=== PATIENT | male | born 1985 | race Caucasian/White ===

== ENCOUNTER 2021-11-17 10:42 | Emergency (ER) | payer BC, SELFPAY ==
[2021-11-17 11:01] VITALS: BP 118/72; PULSE 77; RESP 16; TEMP 36.7; O2SAT 99
--- NOTE | 2021-11-17 11:16 | ED.SKABFB ---
HPI - Skin/Abscess/Foreign Bdy General Chief complaint: Skin/Abscess/Foreign Body Stated complaint: rash Time Seen by Provider: 11/17/21 11:17 Source: patient Mode of arrival: ambulatory Limitations: no limitations History of Present Illness HPI narrative: Bakari Ochoa is a 36 yo male with no PMH who comes to express care with a rash of L axilla. Occasionally is tender but right now it is not bothering him; here because they have a baby at home and make sure he did not have something was contagious Related Data Home Medications Medication Instructions Recorded Confirmed No Home Medications 11/17/21 11/17/21 Allergies Allergy/AdvReac Type Severity Reaction Status Date / Time Sulfa (Sulfonamide Allergy Mild Verified 11/17/21 11:10 Antibiotics) sulfamethoxazole Allergy Mild Verified 11/17/21 11:10 trimethoprim Allergy Mild Verified 11/17/21 11:10 Review of Systems Review of Systems: CONSTITUTIONAL: Denies fever, chills, sweats. EYES: Denies visual changes, redness, discharge. ENT: Denies rhinorrhea, congestion, sore throat, otalgia. CARDIOVASCULAR: Denies chest pain, palpitations, edema. RESPIRATORY: Denies dyspnea, wheezing, cough GASTROINTESTINAL: Denies abdominal pain, nausea, vomiting, diarrhea. GENITOURINARY: Denies dysuria, hematuria, abnormal discharge SKIN: Denies rash or itching. Rash in left axilla NEUROLOGIC: Denies numbness, or focal weakness. PSYCHIATRIC: Denies anxiety or depression. PMFSH Past Medical History Medical History No acute medical problems Social History Social History (Updated 11/17/21 @ 11:26 by Carmen Vergara CNP) Smoking status: Never smoker Alcohol intake: current Comments At time of signature, I agree with nursing past medical, surgical, social and family history. There is no relevant family history pertinent to the presenting complaint. Exam Narrative: GENERAL: This is a well-nourished, well-developed patient, in mild distress. HEAD: normocephalic, atraumatic. EYES: Sclera clear/white. Vision is grossly intact. EARS: External ears normal, . Hearing grossly intact. NOSE: External nose normal without nasal discharge, nares without redness, no rhinorrhea. THROAT: Mucous membranes moist, NECK: Neck supple, CARDIOVASCULAR: Regular rate and rhythm without murmurs, gallops, or rubs. RESPIRATORY: Clear to auscultation. Breath sounds equal bilaterally. No wheezes, rales, or rhonchi. GASTROINTESTINAL: Abdomen soft, non-tender, SKIN: warm, intact with small clusters of erythematous scabbed lesions under left axilla, no tenderness, no induration, is not pruritic NEURO: awake, alert, and oriented to person, place and time. There were no obvious focal neurologic abnormalities. Steady gait EXTREMITIES: Normal range of motion. BACK: Nontender without deformity Course Course Emergency Course: Patient comes with a rash in the left axilla Does not appear to be an infected or infectious-recommended use of triamcinolone until clear Level of Care: Express Care Visit Vital Signs Vital signs: Vital Signs Temperature 98.1 F 11/17/21 11:01 Pulse Rate 77 11/17/21 11:01 Respiratory Rate 16 11/17/21 11:01 Blood Pressure 118/72 11/17/21 11:01 Pulse Oximetry 99 11/17/21 11:01 Temperature 98.1 F 11/17/21 11:01 Pulse Rate 77 11/17/21 11:01 Respiratory Rate 16 11/17/21 11:01 Blood Pressure 118/72 11/17/21 11:01 Pulse Oximetry 99 11/17/21 11:01 MDM - Skin/Abscess/Foreign Bdy Differential Diagnosis Differential diagnosis: Likely urticaria, cellulitis and other Critical Care Time Critical Care Time Critical Care Time: No Discharge Plan Discharge Clinical Impression: Rash Patient Disposition: Home, Self-Care Condition: Stable Instructions: Acute Rash (ED) Additional Instructions: Use triamcinolone to area Prescriptions: No Action No Home Medications
== END 2021-11-17 11:33 | disposition home or self-care (01) ==
PROVIDERS: Emergency Provider Nurse Practitioner; PCP Nurse Practitioner Family
DX: R21 Rash and other nonspecific skin eruption (principal)
CPT/HCPCS: 99211; G0463